=== PATIENT | female | born 1990 | race Two or more races ===

== ENCOUNTER 2022-12-17 09:36 | Emergency (ER) | payer MEDICAID ==
[~2022-12-17 09:36] MED LIST: HYDR1TAB97 PO; IBUP800T26 PO; NORE5TAB3 PO; SERT25TA14 PO
== END 2022-12-17 10:27 | disposition left against medical advice (07) ==
LOC: ER 09:36
DX: R10.2 Pelvic and perineal pain (principal); Z53.21 Procedure and treatment not carried out due to patient leaving prior to being seen by health care provider